=== PATIENT | male | born 1940 | race Caucasian/White ===

== ENCOUNTER 2019-08-17 13:13 | Emergency (ER) | payer MEDICARE, OTHER ==
[~2019-08-17] VITALS: Ht 167.6 cm; Wt 68.0 kg
[~2019-08-17 13:13] MED LIST: ALLO100T PO; ASPI-524 PO; ATEN50TA PO; LEVO100C2 PO; LOVA20TA2 PO
--- NOTE | 2019-08-17 13:30 | NUR ---
ER Dr. Sampson at bedside examining patient.
[2019-08-17 13:37] VITALS: BP_SYST 167
--- NOTE | 2019-08-17 13:45 | NUR ---
Phleb at bedside for blood draw.
--- NOTE | 2019-08-17 14:00 | NUR ---
Pt c/o right ankle/foot pain after trip and fall last week. Abrasion to rt knee, mild redness, no active bleeding. Rt foot and lower extremity red, swollen up to knee with bruising. Pt able to ambulate and states that it only hurts later in the day.
[2019-08-17 14:09] LABS: BASOPHILS % (AUTO) 0.3 % (0.0-2.0); EOSINOPHILS % (AUTO) 0.7 % (0.0-4.0); HEMATOCRIT 33.9 % (36-54); HEMOGLOBIN 11.7 g/dL (14.0-18.0); LYMPHOCYTES # (AUTO) 0.9 K/uL (1.0-5.5); LYMPHOCYTES % (AUTO) 13.1 % (20.5-51.5); MEAN CORPUSCULAR HEMOGLOBIN 34 pg (27-31); MEAN CORPUSCULAR HGB CONC 35 % (32-36); MEAN CORPUSCULAR VOLUME 99 fL (79.0-98.0); MONOCYTES # (AUTO) 0.6 K/uL (0.0-1.0); MONOCYTES % (AUTO) 9.1 % (1.7-9.3); NEUTROPHILS # (AUTO) 5.1 K/uL (1.8-7.7); NEUTROPHILS % (AUTO) 76.8 % (40.0-70.0); PLATELET COUNT (AUTO) 177 K/uL (130-430); RED BLOOD CELL COUNT(AUTO) 3.41 MIL/uL (4.2-6.2); RED CELL DISTRIBUTION WIDTH 13.5 % (9.0-15.0); WHITE BLOOD COUNT (AUTO) 6.6 K/uL (4.8-10.8)
[2019-08-17 14:15] LABS: ANION GAP 8 (5-15); CALCIUM 9.2 mg/dL (8.4-11.0); CHLORIDE 102 mmol/L (98-107); CREATININE 1.12 mg/dL (0.55-1.30); GLUCOSE 144 mg/dL (70-99); POTASSIUM 3.7 mmol/L (3.5-5.1); SODIUM SERUM 135 mmol/L (136-145); UREA NITROGEN, BLOOD 20 mg/dL (8-21)
[2019-08-17 14:17] LABS: ALANINE AMINOTRANSFERASE 19 U/L (12-78); ALBUMIN 3.7 g/dL (3.4-4.8); ASPARTATE AMINOTRANSFERASE 18 U/L (10-37); C-REACTIVE PROTEIN QUANT 6.4 mg/dL (0-0.5); TOTAL BILIRUBIN 1.9 mg/dL (0.0-1.0)
[2019-08-17 14:24] LABS: PROTHROMBIN TIME 10.1 SECS (9.5-12.5)
--- NOTE | 2019-08-17 17:02 | NUR ---
Dr. Sampson at bedside speaking with pt and son regarding ED results and follow up
[2019-08-17 17:33] VITALS: BP_SYST 156
--- NOTE | 2019-08-17 17:33 | NUR ---
Patient given written and verbal discharge instructions and verbalizes understanding. ER MD discussed with patient the results and treatment provided. Patient in stable condition. ID arm band removed. Rx of motrin, norco given. Patient educated on pain management and to follow up with PMD. Pain Scale 1/10. Opportunity for questions provided and answered. Medication side effect fact sheet provided.
== END 2019-08-17 17:33 | disposition home or self-care (01) ==
LOC: SED 13:13
DX: S82.431A Displaced oblique fracture of shaft of right fibula, initial encounter for closed fracture (principal); I10 Essential (primary) hypertension; E78.00 Pure hypercholesterolemia, unspecified; Z79.82 Long term (current) use of aspirin; Z86.73 Personal history of transient ischemic attack (TIA), and cerebral infarction without residual deficits; Z79.899 Other long term (current) drug therapy; W18.39XA Other fall on same level, initial encounter; Y93.89 Activity, other specified; Y92.89 Other specified places as the place of occurrence of the external cause; Y99.8 Other external cause status
CPT/HCPCS: 36415; 80053; 83605; 85025; 85610-TC; 85730-TC; 86140; 93971; 99285

== ENCOUNTER 2022-01-12 15:05 | Inpatient (IN) | payer MEDICARE ==
[~2022-01-12] VITALS: Ht 177.8 cm; Wt 61.7 kg
[2022-01-12 15:05] VITALS: BP_SYST 192
--- NOTE | 2022-01-12 15:20 | NUR ---
Patient triaged and placed in waiting room. VSS and patient appears in no acute distress at this time. Accompanied by SON, awaiting available bed, and MD notified of need for MSE.
--- NOTE | 2022-01-12 18:00 | NUR ---
DR MARCANO OUT TO TRIAGE ROOM FOR EVALUATION
[2022-01-12 19:33] LABS: BASOPHILS # (AUTO) 0.1 K/uL (0.0-0.2); BASOPHILS % (AUTO) 0.9 % (0.0-2.0); EOSINOPHILS % (AUTO) 0.2 % (0.0-4.0); HEMATOCRIT 36.5 % (36-54); HEMOGLOBIN 12.9 g/dL (14.0-18.0); LYMPHOCYTES # (AUTO) 0.9 K/uL (1.0-5.5); LYMPHOCYTES % (AUTO) 8.7 % (20.5-51.5); MEAN CORPUSCULAR HEMOGLOBIN 34 pg (27-31); MEAN CORPUSCULAR HGB CONC 35 % (32-36); MEAN CORPUSCULAR VOLUME 96 fL (79.0-98.0); MONOCYTES # (AUTO) 0.3 K/uL (0.0-1.0); NEUTROPHILS # (AUTO) 8.8 K/uL (1.8-7.7); NEUTROPHILS % (AUTO) 87.2 % (40.0-70.0); PLATELET COUNT (AUTO) 171 K/uL (130-430); RED CELL DISTRIBUTION WIDTH 13.9 % (9.0-15.0); WHITE BLOOD COUNT (AUTO) 10.1 K/uL (4.8-10.8)
[2022-01-12 19:50] LABS: ANION GAP 8 (5-15); CALCIUM 9.2 mg/dL (8.4-11.0); CHLORIDE 99 mmol/L (98-107); CREATININE 0.91 mg/dL (0.55-1.30); GLUCOSE 150 mg/dL (70-99); POTASSIUM 3.9 mmol/L (3.5-5.1); SODIUM SERUM 132 mmol/L (136-145); UREA NITROGEN, BLOOD 14 mg/dL (8-21)
[2022-01-12 20:04] LABS: ALANINE AMINOTRANSFERASE 32 U/L (12-78); ALBUMIN 3.7 g/dL (3.4-4.8); AMYLASE 55 U/L (0-100); ASPARTATE AMINOTRANSFERASE 28 U/L (10-37); LIPASE 44 U/L (73-393); TOTAL BILIRUBIN 1.9 mg/dL (0.0-1.0)
[2022-01-12 20:08] LABS: C-REACTIVE PROTEIN QUANT < 0.2 mg/dL (0-0.5)
--- NOTE | 2022-01-12 20:29 | NUR ---
UPDATED PT ON PLAN OF CARE, INFORMED HIM THAT NEED URINE SPECIMEN, HE VERBALIZED UNDERSTANDING. PT DENIES OF ANY PAIN AT THIS TIME
--- NOTE | 2022-01-12 21:30 | NUR ---
Patient ambulatory to bed 3 for further treatment and evaluation
--- NOTE | 2022-01-12 22:15 | NUR ---
Pt ambulatory from home with c/o sharp abd pain with onset @ 1430 which lasted roughly 1 hour. Vomited x1 prior to ED arrival. Arrived to ED in no acute distress. Breathing adequately on RA. Denies any pain/discomfort at this time.
--- NOTE | 2022-01-12 22:30 | NUR ---
DR. SIMS FROM [facility] SPEAKING TO DR. GALLEGOS REGARDING PT PLAN OF CARE
[2022-01-12 22:41] LABS: BILIRUBIN,URINE NEGATIVE (NEGATIVE); BLOOD, URINE 1+ (NEGATIVE); GLUCOSE,URINE NEGATIVE (NEGATIVE); KETONES,URINE NEGATIVE (NEGATIVE); LEUKOCYTE ESTERASE ,URINE 1+ (NEGATIVE); NITRITE, URINE POSITIVE (NEGATIVE); PROTEIN URINE TRACE (NEGATIVE); UROBILINOGEN,URINE 0.2 (0.2-1.0)
[2022-01-12] MEDS ORDERED: hydrALAZINE HCL 20 MG/ML VIAL IVP ONE (22:45)
--- NOTE | 2022-01-12 23:04 | NUR ---
FREIGHT ELEVATOR ERECTOR ELEONORA CALLED BACK OK TO ADMIT HERE AUTHORIZED BY DR. PIKE.
[2022-01-12] MEDS ORDERED: hydrALAZINE HCL 20 MG/ML VIAL ONE (23:06)
[2022-01-12 23:28] LABS: CLARITY/URINE HAZY (CLEAR); COLOR,URINE YELLOW (YELLOW)
--- NOTE | 2022-01-12 23:52 | NUR ---
Son Manas left ED and wants to be notified when pt is admitted.
[2022-01-13] MEDS ORDERED: cefTRIAXone 1 GM in D5W 50 ML IV ONE ×2
[2022-01-13] MEDS ORDERED: cefTRIAXone 1 GM VIAL ONE (00:02)
[2022-01-13 01:29] LABS: BACTERIA,URINE FEW /HPF (None Seen)
[2022-01-13] MEDS ORDERED: NITROGLYCERIN 0.4 MG TAB.SUBL SL PRN (02:45)
--- NOTE | 2022-01-13 02:46 | NUR ---
Admit bed requested Patient will be admitted to care of . Admitted to TELEMETRY unit. Diagnosis CHEST PAIN RULE OUT ACS Inpatient (Yes or No) YES Observation (Yes or No) NO Orientation concerns or request close to nursing station (Yes or No) NO Covid Status NEG On vent or bipap NO Isolation requirements NO Needs a sitter NO From Home (Yes or if No enter name of facility) HOME Requires Dialysis (Yes or No) NO Med Rec Completed (Yes of No)
[2022-01-13] MEDS ORDERED: AZITHROMYCIN 500 MG in NS 250 ML IV ONE (03:15)
[2022-01-13] MEDS ORDERED: AZITHROMYCIN 500 MG/VIAL (ZITHROMAX) IV ONE (03:18)
--- NOTE | 2022-01-13 04:18 | NUR ---
Patient will be admitted to care of MD ACOSTA. Admitted to TELE unit. Will go to room 101B. Belongings list completed. Complete and up to date summary report printed. SBAR report given at bedside to LINDA Livingston with opportunity for questions.
--- NOTE | 2022-01-13 04:21 | NUR ---
Called and left a VM for son Manas regarding admission/rm.
[2022-01-13] MEDS ORDERED: NALOXONE HCL 0.4 MG/ML AMP (NARCAN) IVP PRN ×2 (04:45)
[2022-01-13] MEDS ORDERED: DOCUSATE SODIUM 100 MG CAPSULE PO PRN (04:45)
[2022-01-13] MEDS ORDERED: MAGNESIUM SULFATE 50 ML IV PRN (04:45)
[2022-01-13] MEDS ORDERED: MUPIROCIN 2% TOPICAL OINTMENT 22 GM NS PRN (04:45)
[2022-01-13] MEDS ORDERED: POTASSIUM CHLORIDE 20 MEQ TAB.PRT.SR PO PRN (04:45)
[2022-01-13] MEDS ORDERED: MORPHINE 2 MG/ML INJ. SYRINGE IVP PRN ×2 (04:45)
[2022-01-13] MEDS ORDERED: ACETAMINOPHEN 325 MG TABLET PO PRN (04:45)
[2022-01-13] MEDS ORDERED: ONDANSETRON HCL 4 MG/2 ML VIAL IVP PRN (04:45)
[2022-01-13 06:33] LABS: BASOPHILS % (AUTO) 0.3 % (0.0-2.0); EOSINOPHILS % (AUTO) 0.5 % (0.0-4.0); HEMATOCRIT 36.3 % (36-54); HEMOGLOBIN 12.7 g/dL (14.0-18.0); LYMPHOCYTES # (AUTO) 0.9 K/uL (1.0-5.5); LYMPHOCYTES % (AUTO) 8.3 % (20.5-51.5); MEAN CORPUSCULAR HEMOGLOBIN 34 pg (27-31); MEAN CORPUSCULAR HGB CONC 35 % (32-36); MEAN CORPUSCULAR VOLUME 96 fL (79.0-98.0); MONOCYTES # (AUTO) 0.8 K/uL (0.0-1.0); MONOCYTES % (AUTO) 8.1 % (1.7-9.3); NEUTROPHILS # (AUTO) 8.6 K/uL (1.8-7.7); NEUTROPHILS % (AUTO) 82.8 % (40.0-70.0); PLATELET COUNT (AUTO) 166 K/uL (130-430); RED BLOOD CELL COUNT(AUTO) 3.77 MIL/uL (4.2-6.2); WHITE BLOOD COUNT (AUTO) 10.4 K/uL (4.8-10.8)
[2022-01-13 06:38] VITALS: BP_SYST 120
[2022-01-13 07:05] LABS: ALANINE AMINOTRANSFERASE 27 U/L (12-78); ALBUMIN 3.5 g/dL (3.4-4.8); ANION GAP 11 (5-15); ASPARTATE AMINOTRANSFERASE 30 U/L (10-37); CALCIUM 9.5 mg/dL (8.4-11.0); CHLORIDE 103 mmol/L (98-107); CREATININE 0.85 mg/dL (0.55-1.30); GLUCOSE 115 mg/dL (70-99); POTASSIUM 3.1 mmol/L (3.5-5.1); SODIUM SERUM 138 mmol/L (136-145); TOTAL BILIRUBIN 1.6 mg/dL (0.0-1.0); UREA NITROGEN, BLOOD 14 mg/dL (8-21)
[2022-01-13 08:00] VITALS: BP_SYST 179
[2022-01-13] MEDS: ALLOPURINOL 100 MG TABLET (ZYLOPRIM) PO SCH (09:00)
[2022-01-13] MEDS ORDERED: ASPIRIN 81 MG TAB.CHEW PO SCH (09:00)
[2022-01-13] MEDS: ASPIRIN 81 MG TAB.CHEW PO SCH (09:00)
[2022-01-13] MEDS ORDERED: LOVASTATIN 20 MG TABLET PO SCH (09:00)
--- NOTE | 2022-01-13 09:40 | NUR ---
ACTIVITY PT AMBULATING WITH P.T., NO SHORTNESS OF BREATH, GAIT STEADY.
--- NOTE | 2022-01-13 10:50 | NUR ---
TEST PT HAVING HIS ECHOCARDIOGRAM.
--- NOTE | 2022-01-13 11:37 | NUR ---
ST EVALUATION COMPLETED. ST TX NOT INDICATED AT THIS TIME. RECOMMEND PO DIET OF REGULAR TEXTURE AND THIN LIQUIDS. DISTANT SUPERVISION AND FULL ASPIRATION PRECAUTIONS.
[2022-01-13 12:00] VITALS: BP_SYST 167
--- NOTE | 2022-01-13 14:00 | NUR ---
IV PT PULLED OUT HIS IV FROM RIGHT ARM. NEW IV INSERTED IN LEFT FOREARM, 22 GAUGE CATHETER, GOOD BLOOD RETURN NOTED.
[2022-01-13] MEDS: LEVOFLOXACIN 250 MG/D5W 50 ML IV SCH (14:05)
--- NOTE | 2022-01-13 14:30 | NUR ---
CONSENT MESSAGE LEFT TO PT'S SON JR FOR CONSENT ON EGD TOMORROW.
[2022-01-13] MEDS ORDERED: POTASSIUM CHLORIDE 20 MEQ TAB.PRT.SR PO ONE (15:00)
[2022-01-13 16:00] VITALS: BP_SYST 152
--- NOTE | 2022-01-13 17:30 | NUR ---
IV PT SEEN WALKING AT THE FOOT OF THE BED OF HIS ROOM MATE. IV FROM LEFT ARM OUT. PT WENT STRAIGHT TO THE HALLWAY AND WAS ASKED TO COME BACK TO HIS ROOM. HE ONLY PROCEEDED WALKING, KEPT ON TALKING, VERY CONFUSED. HE WAS TRYING TO GET INTO EACH PT'S ROOM AND WAS BLOCKED BY NURSING STAFF. PT THEN LED TO THE ROOM CLOSE TO STATION ROOM 113-B.
--- NOTE | 2022-01-13 18:30 | NUR ---
AGITATION NURSES WERE IN THE ROOM, TALKING TO PT CALMLY. PT WANTED TO GET OUT OF THE ROOM AGAIN. PT HAD DIS ASSEMBLED A PART OF TELEMETRY BOX, HE STOOD UP AND HE SWUNG THE BOX TOWARD THE WINDOW GLASS AND SMASHED IT. PT BECAME VERY VIOLENT, KICKING AND SWINGING HIS ARM IN THE AIR WHILE HE WAS BEING TOLD TO SIT DOWN AND GET TO BED. CALL MADE OUT TO DR ACOSTA FOR ORDERS.
[2022-01-13] MEDS ORDERED: LORazepam 2 MG/ML VIAL IM PRN (18:45)
[2022-01-13] MEDS: ZOLPIDEM TARTRATE 5 MG TABLET PO PRN ×2 (20:57→21:02)
[2022-01-13] MEDS: HALOPERIDOL LACTATE 5 MG/ML VIAL IM PRN (21:49)
[2022-01-13 22:50] VITALS: BP_SYST 149
[2022-01-14] VITALS: BP_SYST 167
[2022-01-14] MEDS ORDERED: cefTRIAXone 1 GM in D5W 50 ML IV SCH ×2
[2022-01-14 05:03] VITALS: BP_SYST 146
--- NOTE | 2022-01-14 05:05 | NUR ---
Troponin 245, results was called to MD. no further order or instruction.
--- NOTE | 2022-01-14 05:07 | NUR ---
pt is anxiou and agitated. haldol given IM , sleep comfrtable in his bed. refused to have iIV catheter insertion
[2022-01-14] MEDS: HALOPERIDOL LACTATE 5 MG/ML VIAL IM PRN (05:30)
--- NOTE | 2022-01-14 06:46 | NUR ---
call was placed to the son francesco to obtain consent for egd , but the phone not acceptiing voicemail and hangs up
[2022-01-14] MEDS ORDERED: LEVOTHYROXINE SODIUM 0.1 MG TABLET PO SCH (07:00)
--- NOTE | 2022-01-14 07:43 | NUR ---
UROLOGIST DR Jenna CERRATO WAS CALLED, RE: PARTILA BLADDER OUTLET OBSTRUCTION
[2022-01-14 07:45] VITALS: BP_SYST 132
--- NOTE | 2022-01-14 07:47 | NUR ---
OPEN NOTE Patient asleep upon intial assessment. Restraints to bilateral arms in place. Patient noted to have multiple bruising to bilateral arms due to agitation from pervious shift. Patient not noted in distress or pain at this time. Patient has been NPO since midnight due to EGD that will be done today in a few moments. RN came in and placed IV site to right forearm 22 gauge. Patent and on SL. Patient taken to EGD room and will be back once done. At the time he left for EGD all needs met and will continue to monitor him for safety.
[2022-01-14] MEDS ORDERED: SIMETHICONE 40 MG/0.6 ML ML ONE (07:50)
[2022-01-14] MEDS ORDERED: fentaNYL CITRATE/PF 100 MCG/2 ML AMP ONE (07:50)
[2022-01-14] MEDS ORDERED: MIDAZOLAM HCL 5 MG/5 ML VIAL ONE (07:51)
[2022-01-14 08:01] LABS: BASOPHILS % (AUTO) 0.3 % (0.0-2.0); HEMATOCRIT 35.6 % (36-54); HEMOGLOBIN 12.5 g/dL (14.0-18.0); LYMPHOCYTES # (AUTO) 0.6 K/uL (1.0-5.5); LYMPHOCYTES % (AUTO) 5.2 % (20.5-51.5); MEAN CORPUSCULAR HEMOGLOBIN 34 pg (27-31); MEAN CORPUSCULAR HGB CONC 35 % (32-36); MEAN CORPUSCULAR VOLUME 96 fL (79.0-98.0); MONOCYTES # (AUTO) 1.2 K/uL (0.0-1.0); MONOCYTES % (AUTO) 9.5 % (1.7-9.3); NEUTROPHILS # (AUTO) 10.6 K/uL (1.8-7.7); PLATELET COUNT (AUTO) 179 K/uL (130-430); RED BLOOD CELL COUNT(AUTO) 3.71 MIL/uL (4.2-6.2); WHITE BLOOD COUNT (AUTO) 12.5 K/uL (4.8-10.8)
[2022-01-14 08:03] LABS: ANION GAP 8 (5-15); CALCIUM 9.1 mg/dL (8.4-11.0); CHLORIDE 103 mmol/L (98-107); CREATININE 0.98 mg/dL (0.55-1.30); GLUCOSE 141 mg/dL (70-99); POTASSIUM 3.7 mmol/L (3.5-5.1); SODIUM SERUM 137 mmol/L (136-145); UREA NITROGEN, BLOOD 18 mg/dL (8-21)
[2022-01-14 08:13] LABS: INR 1.1 (0.80-1.20); PROTHROMBIN TIME 10.9 SECS (9.5-12.5)
[2022-01-14 08:18] LABS: ALANINE AMINOTRANSFERASE 32 U/L (12-78); ALBUMIN 3.4 g/dL (3.4-4.8); ASPARTATE AMINOTRANSFERASE 69 U/L (10-37); LIPASE 26 U/L (73-393); THYROID STIMULATING HORMONE 0.14 uIu/mL (0.36-3.74); TOTAL BILIRUBIN 1.5 mg/dL (0.0-1.0)
[2022-01-14] MEDS: ATORVASTATIN 10 MG TABLET PO SCH (09:00)
[2022-01-14] MEDS: ALLOPURINOL 100 MG TABLET (ZYLOPRIM) PO SCH (09:00)
[2022-01-14] MEDS: ASPIRIN 81 MG TAB.CHEW PO SCH (09:00)
[2022-01-14] MEDS ORDERED: *TPN PER PHARMACY XX PRN (09:30)
--- NOTE | 2022-01-14 09:30 | NUR ---
IN & OUT Cath Did In & Out cath as per MD Cortez's orders and obtained 2000 mls of clear urine. Patient does not have bladder distention or pain.
[2022-01-14] MEDS ORDERED: HEPARIN SODIUM,PORCINE 5,000 UNITS/ML VIAL SUBCUT SCH (10:00)
[2022-01-14] MEDS ORDERED: HEPARIN SODIUM,PORCINE 5,000 UNITS/ML VIAL SUBCUT ONE (11:15)
[2022-01-14 12:05] VITALS: BP_SYST 153
--- NOTE | 2022-01-14 12:08 | NUR ---
PATIENT ROUNDS Patient resting in bed asleep. No pain, no distress, no shortness of breath noted. IV site to RFA 22guage patent and on SL. Patient to have PICC line placed later today due to new TPN orders to be initiated tonight, consents signed and in chart and Ethanol Operations Manager was informed. All needs met at this time, bed in lowest position, soft wrist restraints in place, and call light within reach. Safety measures in place. Will continue to monitor.
[2022-01-14] MEDS: LEVOFLOXACIN 250 MG/D5W 50 ML IV SCH (12:34)
[2022-01-14] MEDS: cefTRIAXone 1 GM in D5W 50 ML IV SCH (13:46)
--- NOTE | 2022-01-14 14:48 | NUR ---
Dietitian Recommendations * PPN D20%, AA8.5% at 100 ml/hr (goal rate), IL20% at 5 ml/hr daily via peripheral line Provides: 1464 kcal/day, 102 gm protein/day, 2520 ml total volume/day, and GIR: 2.7 mg CHO/kg/min Meets: 78% of lower end of estimated caloric needs and 90% of upper end of estimated caloric needs -OR- TPN D50%, AA10% at 80 ml/hr (goal rate), IL20% at 5 ml/hr via central line Provides: 2198 kcal/day, 96 gm protein/day, 2040 ml total volume/day, and GIR: 5.4 mg CHO/kg/min Meets: 97% of upper end of estimated caloric needs and 85% of upper end of estimated protein needs LP, MS, RD Please refer to Nutrition Assessment for details. Addendum: 01/14/22 at [address] Amended: Links added.
[2022-01-14 16:10] VITALS: BP_SYST 174
--- NOTE | 2022-01-14 16:10 | NUR ---
PATIENT ROUNDS Patient resting in bed asleep. No pain, no distress, no shortness of breath noted. IV site to RFA 22guage patent and on SL. Patient to have PICC line placed later today due to new TPN orders to be initiated tonight, consents signed and in chart. All needs met at this time, bed in lowest position, soft wrist restraints in place, and call light within reach. Safety measures in place. Will continue to monitor.
--- NOTE | 2022-01-14 18:21 | NUR ---
CLOSE NOTE Patient resting. Restraints to bilateral arms in place due to agitation from pervious shift. Patient not noted in distress, pain, or shortness of breath at this time. Patient is NPO and awaiting PICC line insertion later to start TPN. IV site to right forearm 22 gauge is patent and on SL. All needs met with safety precautions in place. Will endorse to nightshift nurse.
--- NOTE | 2022-01-14 20:22 | NUR ---
Consent for PICC missing. Son was called for PICC Line insertion telephone consent. After consent received, original placed in chart and PICC Line Nurse began procedure w one attempt. Procedure tolerated well. CXR 1 V STAT ordered and called in to Radiology. Placement verified.
[2022-01-14] MEDS ORDERED: [UNRECOGNIZED DRUG - OTHER] IV SCH ×8 (21:00)
[2022-01-14] MEDS: FAT EMULSIONS 250 ML IV SCH (21:00)
[2022-01-14] MEDS ORDERED: TPN PERIPHERAL IV SCH ×8 (21:00)
[2022-01-14] MEDS ORDERED: SODIUM ACETATE IV SCH ×8 (21:00)
[2022-01-14] MEDS ORDERED: POTASSIUM CHLORIDE IV SCH ×8 (21:00)
--- NOTE | 2022-01-14 23:31 | NUR ---
I/O catheterization done. Pt tolerated well. Clear, Yellow urine slowly flowing out into collection bag.
[2022-01-15] MEDS: LABETALOL 100 MG/ 20ML VIAL IVP PRN ×3 (00:42→13:21)
[2022-01-15 07:11] LABS: ANION GAP 10 (5-15); CHLORIDE 101 mmol/L (98-107); CREATININE 0.79 mg/dL (0.55-1.30); GLUCOSE 121 mg/dL (70-99); POTASSIUM 3.1 mmol/L (3.5-5.1); SODIUM SERUM 137 mmol/L (136-145); UREA NITROGEN, BLOOD 18 mg/dL (8-21)
[2022-01-15 07:19] LABS: ALANINE AMINOTRANSFERASE 35 U/L (12-78); ALBUMIN 3.5 g/dL (3.4-4.8); ASPARTATE AMINOTRANSFERASE 64 U/L (10-37); TOTAL BILIRUBIN 2.4 mg/dL (0.0-1.0)
[2022-01-15 07:21] LABS: BASOPHILS % (AUTO) 0.3 % (0.0-2.0); EOSINOPHILS % (AUTO) 0.1 % (0.0-4.0); HEMATOCRIT 40.8 % (36-54); HEMOGLOBIN 14.2 g/dL (14.0-18.0); LYMPHOCYTES # (AUTO) 0.7 K/uL (1.0-5.5); LYMPHOCYTES % (AUTO) 4.6 % (20.5-51.5); MEAN CORPUSCULAR HEMOGLOBIN 33 pg (27-31); MEAN CORPUSCULAR HGB CONC 35 % (32-36); MEAN CORPUSCULAR VOLUME 96 fL (79.0-98.0); MONOCYTES # (AUTO) 1.1 K/uL (0.0-1.0); MONOCYTES % (AUTO) 7.2 % (1.7-9.3); NEUTROPHILS # (AUTO) 13.2 K/uL (1.8-7.7); NEUTROPHILS % (AUTO) 87.8 % (40.0-70.0); PLATELET COUNT (AUTO) 170 K/uL (130-430); RED BLOOD CELL COUNT(AUTO) 4.27 MIL/uL (4.2-6.2); RED CELL DISTRIBUTION WIDTH 13.9 % (9.0-15.0)
[2022-01-15 08:00] VITALS: BP_SYST 156
--- NOTE | 2022-01-15 08:00 | NUR ---
OPENING NOTE Patient in bed resting with eyes closed, no sign of pain or distress. Bilateral soft wrist restraint in place for patient safety, patient has been attempting to get out of bed. IV is clean, dry, intact, and patent. Nurse at bedside as a sitter. All needs met at this time and safety checks made.
--- NOTE | 2022-01-15 08:10 | NUR ---
CRITICAL LAB: Amada from Laboratory called with critical lab value troponin 454. Medical record number and patient name verified. Read back of values done. Dr Zafar notified of value. No new orders given at this time.
[2022-01-15] MEDS: ASPIRIN 81 MG TAB.CHEW PO SCH (09:00)
[2022-01-15] MEDS: ATORVASTATIN 10 MG TABLET PO SCH (09:00)
[2022-01-15] MEDS: ALLOPURINOL 100 MG TABLET (ZYLOPRIM) PO SCH (09:00)
[2022-01-15] MEDS: HEPARIN SODIUM,PORCINE 5,000 UNITS/ML VIAL SUBCUT SCH ×2 (09:02→21:30)
--- NOTE | 2022-01-15 09:40 | NUR ---
CATHETERIZATION Sarah catheter placed for urine collection, patient tolerated well. Dr Cortez is aware, patient will be watched closely to ensure he does not pull at the sarah catheter. Draining clear yellow urine. No pain or bladder distention.
[2022-01-15] MEDS: LEVOFLOXACIN 250 MG/D5W 50 ML IV SCH (10:21)
[2022-01-15] MEDS: LORazepam 2 MG/ML VIAL IVP PRN ×2 (10:23→21:29)
--- NOTE | 2022-01-15 13:00 | NUR ---
SON AT BEDSIDE Son, Manas, at bedside to visit patient. Son stated that he spoke with Dr Brar regarding a Gtube placement and will speak with the patient's primary physician before making a decision. Son plans to speak with the physician tomorrow, 01/16.
[2022-01-15] MEDS: cefTRIAXone 1 GM in D5W 50 ML IV SCH (13:10)
[2022-01-15 13:17] VITALS: BP_SYST 195
[2022-01-15] MEDS ORDERED: POTASSIUM CHLORIDE 20 MEQ/PKT PACKET GT PRN (14:30)
[2022-01-15] MEDS ORDERED: DOCUSATE SODIUM 100 MG/10 ML UDC GT PRN (14:30)
[2022-01-15] MEDS ORDERED: ACETAMINOPHEN 650 MG/20.3 ML UDC GT PRN ×2 (14:30)
[2022-01-15 16:00] VITALS: BP_SYST 136
--- NOTE | 2022-01-15 16:43 | NUR ---
CM: requesting MAYITO Espinosa to call pcp for medical status order and whether the pt is stable to transfer to [facility]. Addendum: 01/15/22 at 1651 by Emery Collado RN Andre Espinosa: received stable to transfer to [facility] order from pcp. CM faxed clinical notes and order faxed to the [facility] fax # [phone] and [facility] Rula exchange # [phone] for the cm to call back nursing unit radha/Francisca nurse. Addendum: 01/15/22 at 1706 by Emery Collado RN Manas Nevarez aware and agreed with a possible transfer to network. Rouqe said pt normally goes to [facility].
--- NOTE | 2022-01-15 16:49 | NUR ---
SPOKE WITH MD Spoke to Dr Cardenas regarding patient transfer. stated that patient is stable to transfer to a network facility but will need to follow up with GI.
[2022-01-15 17:23] LABS: TRIGLYCERIDES 82 mg/dL (30-150)
--- NOTE | 2022-01-15 19:20 | NUR ---
CLOSING NOTE Patient in bed resting with eyes closed, no sign of distress or pain. IV is clean, dry, intact, and patent. Sarah catheter in place draining zahra urine. Restraints in place for patient safety. Nurse has been present throughout the shift as a sitter. When released from restraints, patient attempts to pull at the sarah and get out of bed. All needs met at this time and safety checks made. Endorsed to night clerk auditor nurse.
[2022-01-15 20:00] VITALS: BP_SYST 155
[2022-01-15] MEDS ORDERED: TPN PERIPHERAL IV SCH ×9 (21:00)
[2022-01-15] MEDS ORDERED: POTASSIUM CHLORIDE IV SCH ×9 (21:00)
[2022-01-15] MEDS ORDERED: [UNRECOGNIZED DRUG - OTHER] IV SCH ×9 (21:00)
[2022-01-15] MEDS ORDERED: SODIUM ACETATE IV SCH ×9 (21:00)
[2022-01-15] MEDS: FAT EMULSIONS 250 ML IV SCH (21:31)
[2022-01-16 04:00] VITALS: BP_SYST 149
[2022-01-16 07:40] VITALS: BP_SYST 168
[2022-01-16] MEDS: ATORVASTATIN 10 MG TABLET GT SCH (08:59)
[2022-01-16] MEDS: LEVOTHYROXINE SODIUM 0.1 MG TABLET GT SCH (08:59)
[2022-01-16] MEDS: ASPIRIN 81 MG TAB.CHEW GT SCH (08:59)
[2022-01-16] MEDS: ALLOPURINOL 100 MG TABLET (ZYLOPRIM) GT SCH (09:00)
[2022-01-16] MEDS: HEPARIN SODIUM,PORCINE 5,000 UNITS/ML VIAL SUBCUT SCH ×2 (09:01→20:59)
[2022-01-16 09:08] LABS: CALCIUM 8.5 mg/dL (8.4-11.0); CHLORIDE 105 mmol/L (98-107); CREATININE 0.98 mg/dL (0.55-1.30); GLUCOSE 141 mg/dL (70-99); POTASSIUM 3.4 mmol/L (3.5-5.1); SODIUM SERUM 141 mmol/L (136-145); UREA NITROGEN, BLOOD 27 mg/dL (8-21)
[2022-01-16 09:22] LABS: BASOPHILS % (AUTO) 0.2 % (0.0-2.0); EOSINOPHILS % (AUTO) 0.3 % (0.0-4.0); HEMATOCRIT 38.7 % (36-54); HEMOGLOBIN 13.6 g/dL (14.0-18.0); LYMPHOCYTES # (AUTO) 0.9 K/uL (1.0-5.5); LYMPHOCYTES % (AUTO) 9.7 % (20.5-51.5); MEAN CORPUSCULAR HEMOGLOBIN 34 pg (27-31); MEAN CORPUSCULAR HGB CONC 35 % (32-36); MEAN CORPUSCULAR VOLUME 96 fL (79.0-98.0); MONOCYTES # (AUTO) 1.1 K/uL (0.0-1.0); MONOCYTES % (AUTO) 11.4 % (1.7-9.3); NEUTROPHILS # (AUTO) 7.4 K/uL (1.8-7.7); NEUTROPHILS % (AUTO) 78.4 % (40.0-70.0); PLATELET COUNT (AUTO) 149 K/uL (130-430); RED BLOOD CELL COUNT(AUTO) 4.02 MIL/uL (4.2-6.2); WHITE BLOOD COUNT (AUTO) 9.5 K/uL (4.8-10.8)
[2022-01-16 09:39] LABS: ANION GAP 9 (5-15)
[2022-01-16] MEDS: LEVOFLOXACIN 250 MG/D5W 50 ML IV SCH (11:40)
[2022-01-16] MEDS: LABETALOL 100 MG/ 20ML VIAL IVP PRN (11:44)
[2022-01-16 12:05] VITALS: BP_SYST 180
[2022-01-16] MEDS: cefTRIAXone 1 GM in D5W 50 ML IV SCH (13:00)
--- NOTE | 2022-01-16 13:45 | NUR ---
Spoke to Isai at [facility] [phone]-she is looking into transfer to [facility]. Spoke w/ the patient's son-he is agreeable to transfer to [facility].
[2022-01-16 16:29] VITALS: BP_SYST 167
[2022-01-16] MEDS: LORazepam 2 MG/ML VIAL IVP PRN (19:01)
[2022-01-16 20:00] VITALS: BP_SYST 169
--- NOTE | 2022-01-16 20:00 | NUR ---
1930. PT IS SEDATED DUE TO HE WAS GIVEN AN ATIVAN DURING SHIFT CHANGE. NO S/S OF DISTRESS. PATIENT WITHDRAWS TO DEEP PAIN STIMULI. BILATERAL SOFT WRIST RESTRAINTS APPLIED PROPERLY DUE TO PATIENT IS CONFUSED, TRYING TO GET OUT OF BED AND UNCOOPERATIVE. RIGHT UPPER ARM PICC LINE PATENT RUNNING TPN AT 50 ML/HR, LIPIDS AT 5 ML/HR AND NS AT 5 ML/HR. SAFETY MAINTAINED.
[2022-01-16] MEDS: FAT EMULSIONS 250 ML IV SCH (20:57)
[2022-01-16] MEDS ORDERED: K PHOS IV SCH ×9 (21:00)
[2022-01-16] MEDS ORDERED: SODIUM ACETATE IV SCH ×9 (21:00)
[2022-01-16] MEDS ORDERED: [UNRECOGNIZED DRUG - OTHER] IV SCH ×9 (21:00)
[2022-01-16] MEDS ORDERED: TPN CENTRAL IV SCH ×9 (21:00)
[2022-01-16] MEDS ORDERED: POTASSIUM CHLORIDE IV SCH ×9 (21:00)
[2022-01-17] VITALS: BP_SYST 108; BP_SYST 96
[2022-01-17 04:09] VITALS: BP_SYST 162
[2022-01-17] MEDS: LEVOTHYROXINE SODIUM 0.1 MG TABLET GT SCH (06:36)
[2022-01-17 07:09] LABS: BASOPHILS % (AUTO) 0.3 % (0.0-2.0); EOSINOPHILS # (AUTO) 0.1 K/uL (0.0-0.4); EOSINOPHILS % (AUTO) 1.4 % (0.0-4.0); HEMATOCRIT 38.8 % (36-54); HEMOGLOBIN 13.9 g/dL (14.0-18.0); LYMPHOCYTES # (AUTO) 0.9 K/uL (1.0-5.5); LYMPHOCYTES % (AUTO) 9.6 % (20.5-51.5); MEAN CORPUSCULAR HEMOGLOBIN 34 pg (27-31); MEAN CORPUSCULAR HGB CONC 36 % (32-36); MEAN CORPUSCULAR VOLUME 95 fL (79.0-98.0); MONOCYTES % (AUTO) 10.2 % (1.7-9.3); NEUTROPHILS # (AUTO) 7.7 K/uL (1.8-7.7); NEUTROPHILS % (AUTO) 78.5 % (40.0-70.0); PLATELET COUNT (AUTO) 147 K/uL (130-430); RED CELL DISTRIBUTION WIDTH 13.7 % (9.0-15.0); WHITE BLOOD COUNT (AUTO) 9.8 K/uL (4.8-10.8)
[2022-01-17 07:45] LABS: ANION GAP 10 (5-15); CALCIUM 8.5 mg/dL (8.4-11.0); CHLORIDE 104 mmol/L (98-107); CREATININE 0.79 mg/dL (0.55-1.30); GLUCOSE 164 mg/dL (70-99); PHOSPHORUS 2.1 mg/dL (2.7-4.5); POTASSIUM 3.5 mmol/L (3.5-5.1); SODIUM SERUM 141 mmol/L (136-145); UREA NITROGEN, BLOOD 21 mg/dL (8-21)
[2022-01-17 07:50] VITALS: BP_SYST 196
[2022-01-17] MEDS: ASPIRIN 81 MG TAB.CHEW GT SCH (09:48)
[2022-01-17] MEDS: ATORVASTATIN 10 MG TABLET GT SCH (09:49)
[2022-01-17] MEDS: ALLOPURINOL 100 MG TABLET (ZYLOPRIM) GT SCH (09:49)
[2022-01-17] MEDS: HEPARIN SODIUM,PORCINE 5,000 UNITS/ML VIAL SUBCUT SCH ×2 (09:50→20:31)
--- NOTE | 2022-01-17 10:00 | NUR ---
PT REFUSED TO EAT BREAKFAST, BUT TOOK HIS AM MEDS. PT GETTING TPN AND LIPIDS.
[2022-01-17] MEDS: LEVOFLOXACIN 250 MG/D5W 50 ML IV SCH (10:57)
[2022-01-17] MEDS: cefTRIAXone 1 GM in D5W 50 ML IV SCH (12:39)
--- NOTE | 2022-01-17 13:28 | NUR ---
PT REFUSED TO EAT LUNCH OFFERED AND REFUSED ASSISTANCE.
--- NOTE | 2022-01-17 15:02 | NUR ---
Spoke jair/Isai at [facility]- She is looking for a bed -no bed available at this time in a contracted hospital
[2022-01-17 16:00] VITALS: BP_SYST 157
--- NOTE | 2022-01-17 16:31 | NUR ---
Patient for possible transfer to [facility] this evening. [facility] will call if bed is available.
--- NOTE | 2022-01-17 16:40 | NUR ---
DC PLAN TO [facility]. PT'S SON AT BEDSIDE, MADE AWARE OF DC PLAN, HE SPOKE WITH CUSTOMER PROGRAM MANAGER JANNETTE.
--- NOTE | 2022-01-17 19:28 | NUR ---
PT HAS BEEN STABLE, VITALS WNL. NO FEVER. PT REFUSED MEALS EVEN WITH ASSISTANCE. PT ON TPN. ENDORSED TO NIGHT NURSE THAT PT HAS ORDER TO DC TO CONTRACTED HOSPITAL WHEN BED AVAILABLE.
[2022-01-17 20:04] VITALS: BP_SYST 161
[2022-01-17] MEDS: FAT EMULSIONS 250 ML IV SCH (20:30)
[2022-01-17] MEDS ORDERED: TPN CENTRAL IV SCH ×9 (21:00)
[2022-01-17] MEDS ORDERED: POTASSIUM CHLORIDE IV SCH ×9 (21:00)
[2022-01-17] MEDS ORDERED: [UNRECOGNIZED DRUG - OTHER] IV SCH ×9 (21:00)
[2022-01-17] MEDS ORDERED: SODIUM ACETATE IV SCH ×9 (21:00)
[2022-01-17] MEDS ORDERED: K PHOS IV SCH ×9 (21:00)
--- NOTE | 2022-01-17 21:40 | NUR ---
Report to Registered Nurse, Jr, at [facility]. Patient to transfer at 2200 to room 108B. Home Cabello RN
--- NOTE | 2022-01-17 22:58 | NUR ---
Spoke with Jr at [facility] who request MD be paged and prn for blood pressure given for 210/80 mmHg. Patient has been ordered hydralazine by Doctor Sharon. Home Cabello RN
[2022-01-17] MEDS ORDERED: hydrALAZINE HCL 20 MG/ML VIAL IVP ONE (23:00)
--- NOTE | 2022-01-17 23:20 | NUR ---
Patient blood pressure improved for transportation with prn hydralazine. Home Cabello RN
== END 2022-01-17 23:30 | disposition short-term general hospital (02) | DRG 393 ==
LOC: SED 15:05 → STU 01-13 02:42
PROVIDERS: ADMIT Family Medicine; ATTEND Family Medicine
PROC: 0DC58ZZ Extirpation of Matter from Esophagus, Via Natural or Artificial Opening Endoscopic (ICD-10-PCS; principal; 2022-01-14 15:30)
PROC: 0DB58ZX Excision of Esophagus, Via Natural or Artificial Opening Endoscopic, Diagnostic (ICD-10-PCS; 2022-01-14 15:30)
DX: T18.128A Food in esophagus causing other injury, initial encounter (principal); I21.4 Non-ST elevation (NSTEMI) myocardial infarction; I45.2 Bifascicular block; N10 Acute pyelonephritis; N13.8 Other obstructive and reflux uropathy; I24.8 Other forms of acute ischemic heart disease; K22.0 Achalasia of cardia; K44.9 Diaphragmatic hernia without obstruction or gangrene; D64.9 Anemia, unspecified; R13.10 Dysphagia, unspecified; K26.9 Duodenal ulcer, unspecified as acute or chronic, without hemorrhage or perforation; E03.9 Hypothyroidism, unspecified; E78.5 Hyperlipidemia, unspecified; F03.90 Unspecified dementia, unspecified severity, without behavioral disturbance, psychotic disturbance, mood disturbance, and anxiety; I10 Essential (primary) hypertension; I44.0 Atrioventricular block, first degree; X58.XXXA Exposure to other specified factors, initial encounter; N40.1 Benign prostatic hyperplasia with lower urinary tract symptoms; K22.89 Other specified disease of esophagus; Z87.891 Personal history of nicotine dependence; Z90.49 Acquired absence of other specified parts of digestive tract; Y93.89 Activity, other specified; Y92.89 Other specified places as the place of occurrence of the external cause; Y99.8 Other external cause status; Z79.82 Long term (current) use of aspirin; Z79.899 Other long term (current) drug therapy
CPT/HCPCS: 36415; 43239; 43247; 71045; 71275; 76376; 80048; 80053; 81000; 82150; 82962; 83036; 83605; 83690; 83735; 83880; 84100; 84443; 84478; 84484; 85025; 85610-TC; 85730-TC; 86140; 87040; 87086; 88305; 88312; 88313; 92610-GN; 93005; 93306; 96365; 96367; 96375; 99285; G0378; J0360; J0456; J0696; J1630; J1644; J1956; J2060; J2250; J3010; J3475; J3480; J3490; J7050; J7060; Q9967